=== PATIENT | female | born 1965 | race Caucasian/White ===

== ENCOUNTER 2021-05-15 09:58 | Emergency (ER) | payer OTHER ==
[~2021-05-15] VITALS: Ht 154.9 cm; Wt 68.0 kg
[2021-05-15] MEDS ORDERED: ASPIRIN 81MG TABLET PO ONE (12:15)
[2021-05-15] MEDS ORDERED: KETOROLAC 60MG/2ML VIAL IM ONE (12:15)
[2021-05-15 12:31] LABS: BASOPHILS % 0.4 % (0.0-2.0); EOSINOPHILS % 1.1 % (0.0-5.0); HEMATOCRIT. 43.5 % (36.0-48.0); HEMOGLOBIN. 14.2 g/dL (12.0-16.0); LYMPHOCYTES % 38.1 % (20.0-50.0); MEAN CORPUSCULAR HEMOGLOBIN 30.6 pg (28.0-32.0); MEAN CORPUSCULAR VOLUME 93.8 fL (81.0-99.0); MEAN PLATELET VOLUME 8.9 fl (7.4-10.4); MONOCYTES % 6.5 % (2.0-8.0); NEUTROPHILS % 53.9 % (40.0-76.0); PLATELET 242 x1000/uL (130-400); RED BLOOD CELL COUNT 4.64 mill/uL (4.2-5.4)
[2021-05-15 12:35] LABS: CHLORIDE 105 mEq/L (98-107)
[2021-05-15 15:42] VITALS: BP 135/65
== END 2021-05-15 15:42 | disposition home or self-care (01) ==
LOC: ER 09:58
DX: R07.89 Other chest pain (principal)
CPT/HCPCS: 36415; 71045; 80053; 83880; 84484; 85025; 93005; 99285